=== PATIENT | male | born 1955 | race Caucasian/White ===

== ENCOUNTER → 2021-02-06 | Day surgery (SDC) | payer OTHER ==
[~2021-02-06] MED LIST: METFORMIN HCL500 MG PO; NORCO 5-325 TA1 EACH PO; NORVASC 10MG TA10 MG PO; SYNTHROID125 MCG PO
[2021-02-06 11:14] LABS: HCT 43.9 % (42.0-52.0); HGB 15.8 g/dl (13.2-18.0); MCH 33.6 pg (25.0-31.0); MCV 93.4 fL (78.0-100.0); MPV 10.6 fL (6.0-9.5); RBC 4.7 M/uL (4.70-6.00); RDW 12.9 % (11.5-14.0); WBC 5.4 K/uL (4.0-10.5)
[2021-02-06 11:16] LABS: ALBUMIN 4.2 g/dL (3.4-5.0); BILIRUBIN - TOTAL 1.1 mg/dL (0.2-1.0); BUN/CREAT RATIO (CALC) 15.7 RATIO; CREATININE 1.15 mg/dL (0.67-1.17); GLOBULIN (CALCULATION) 2.9 g/dL; TOTAL PROTEIN 7.1 g/dL (6.4-8.2)
== END | disposition home or self-care (01) ==
LOC: FAS 10:17
PROVIDERS: Surgery
DX: Z12.11 Encounter for screening for malignant neoplasm of colon (principal); K21.9 Gastro-esophageal reflux disease without esophagitis; I10 Essential (primary) hypertension; E03.9 Hypothyroidism, unspecified; E11.9 Type 2 diabetes mellitus without complications; Z91.018 Allergy to other foods; Z79.84 Long term (current) use of oral hypoglycemic drugs; Z80.0 Family history of malignant neoplasm of digestive organs; Z85.810 Personal history of malignant neoplasm of tongue; Z87.891 Personal history of nicotine dependence; Z98.890 Other specified postprocedural states; Z20.822 Contact with and (suspected) exposure to COVID-19
CPT/HCPCS: 36415; 80053; J2250; J2704; J7120